=== PATIENT | male | born 1980 | race Caucasian/White ===

== ENCOUNTER 2019-04-17 20:59 | Emergency (ER) | payer MEDICAID, SELFPAY ==
[2019-04-17 21:00] VITALS: BP 125/86; PULSE 89; RESP 16; TEMP 37.2; O2SAT 100; BMI 24.3
[2019-04-17 21:22] LABS: Bacteria 0 SEEN /hpf (None Seen); Mucous, Urine 0 SEEN /hpf (<or=2+); Squamous Epithelial Cells - UA 0 SEEN /hpf (0-5)
[2019-04-17 21:51] LABS: Color, Urine Yellow (Yellow); Glucose, Dipstick Normal (Normal); Ketone-Dipstick Negative (Negative); Leukocyte Esterase-Dipstick 25 /ul (Negative); Nitrite-Dipstick Negative (Negative); Occult Blood-Urine 50 /ul (Negative); Protein-Dipstick Negative (Negative); Specific Gravity, Urine 1.005 (1.002-1.030); Urine Bilirubin Dipstick Negative (Negative); Urine Clarity Clear (Clear); Urine Urobilinogen Normal (Normal)
[2019-04-17 22:04] LABS: Red Blood Cells-Urine 0-5 SEEN /hpf (0-5); White Blood Cells 0-5 SEEN /hpf (0-5)
--- NOTE | 2019-04-17 22:22 | CT_ITS ---
STUDY: CT ABDOMEN AND PELVIS WITHOUT CONTRAST REASON FOR EXAM: Male, 38 years old. Right flank pain with hematuria RADIATION DOSAGE (If Supplied By Facility): CTDIvol = ( 6.57 ) mGy, DLP = ( 321.94 ) mGycm TECHNIQUE: Transaxial 3.75 mm images were obtained from the dome of the diaphragm to the symphysis pubis without oral contrast, and without intravenous contrast. Sagittal and coronal images were reconstructed. This examination is limited for the evaluation of gastrointestinal, solid organs and vascular structures due to the lack of intravenous and oral contrast. Individualized dose optimization techniques were used for this CT. COMPARISON: None. FINDINGS: Atelectasis right base. Hyperinflation basilar parenchyma. Trace right pleural fluid. The visualized portions of the heart are within normal limits. Liver appears low attenuated and enlarged. Normal gallbladder and extrahepatic biliary system. Round low-attenuation anterior superior spleen of 1.3 x 1.2 x 1.2 cm measuring near water density. Normal pancreas. Normal bilateral adrenal glands. Mild right hydronephrosis and hydroureter with a obstructing distal ureteral calculus just superior to the UVJ measuring 0.5 x 0.2 cm image 100 series 2. There is perirenal stranding and trace fluid. Left mid renal cyst 2.2 x 2.2 cm and a nonobstructing 1 to 2 mm calculus. Normal visualized stomach. Normal small intestine. Normal colon. The appendix is visualized and appears normal. Normal abdominal aorta. Normal inferior vena cava. Normal retroperitoneum. Decompressed urinary bladder. The prostate is age appropriate. There is minimal pelvic fluid. Normal abdominal wall. Left total hip arthroplasty with streak artifact. CT/Abdomen/Pelvis without Cont IMPRESSION: Mild right hydronephrosis and hydroureter with an obstructing small right distal ureteral/UVJ calculus. Small left renal cyst and nonobstructing left renal calculus. Probable hepatomegaly and hepatic steatosis. Trace pelvic fluid of unclear etiology. There is no appendicitis, diverticulitis, abscess, collection, perforation or obstruction. Low-attenuation in the spleen may be a cyst or hemangioma the patient's age group. This can be confirmed with ultrasound if needed. Other nonacute findings as outlined above. Electronically Signed: Megan Shah MD at 23:10 EDT , Service support ,
--- NOTE | 2019-04-17 22:25 | ED.VISSUMM ---
- ER Visit Summary Date of Service: 04/17/19 Chief Complaint: Flank pain History of Present Illness: The patient is a 38 M who presents with right flank pain. This is been present for 2 days. He currently rates it as 10 out of 10. It radiates from the right lower back around to the right lower abdomen. He has had some relief with a heating pad. He is concerned he may have a kidney stone although he has no prior history of this. He does report intermittent hematuria but no dysuria frequency urgency. No fevers or chills. No nausea vomiting or diarrhea. Physical Examination: Afebrile vitals normal Moist mucous membranes Heart regular rate and rhythm Lungs are clear The abdomen is soft nontender nondistended no reproducible abdominal tenderness Patient does have right CVA tenderness Alert Test Results: Urinalysis shows 25 leukocyte esterase, 50 blood but 0-5 WBCs, 0-5 RBCs. Labs notable for white count 15.5, creatinine 1.4. CT of the abdomen and pelvis shows mild hydronephrosis with a 5 x 2 mm distal right ureteral calculus. Emergency Department Course and Treatment: Patient was treated with IV fluids, Toradol, Zofran. He does feel much better on reevaluation. Therefore I do believe he can be managed as an outpatient with expectant care. He will be referred to urology for outpatient follow-up. He does understand to return for new or worsening symptoms. Patient discharged. Treatment Plan: [] Disposition: Discharge Impression: Ureterolithiasis This note was generated with [employer] dictation software. It may contain incorrect words, spelling, and punctuation that were not noted in review of the chart prior to signing ED Disposition - Plan for ED Patient: Referrals: Colten Dominguez DO [Primary Care Provider] -
[2019-04-17 22:41] LABS: Absolute Neutrophil Count 12.7 X10^3/uL (2.0-7.7); Basophil# 0.02 X10^3/uL; Basophil% 0.1 % (0-1); Eosinophil# 0.09 X10^3/uL; Eosinophils% 0.6 % (0-5); Hematocrit 43.2 % (40-54); Hemoglobin 14.6 g/dl (13.0-16.5); Lymphocyte % 9.7 % (19-41); Mean Corp Hgb Conc 33.8 g/gl (32-36); Mean Corpuscular Hgb 29.1 pg (27.0-32.0); Mean Corpuscular Volume 86.2 fL (80-94); Mean Platelet Vol. 8.6 fl (6.2-12.0); Monocyte# 1.16 X10^3/uL; Monocyte% 7.5 % (0-10); Neutrophil # 12.68 X10^3/uL (2.7-7.7); Neutrophil % 81.8 % (47-70); Platelet Count 230 K/mm3 (150-450); RBC Distribution Width CV 13.1 % (11.6-14.6); RBC Distribution Width SD 41.4 fl (35.1-43.9); Red Blood Count 5.01 M/mm3 (4.6-6.2); White Blood Count 15.5 K/mm3 (4.4-11.0)
[2019-04-17 22:42] LABS: POSITIVE COUNT NO; POSITIVE DIFFERENTIAL NO; POSITIVE MORPHOLOGY NO
[2019-04-17] MEDS: 0.9% Normal Saline 1,000 ML 1000 ML IV (22:42)
[2019-04-17] MEDS: Ketorolac 30 MG/ML Syringe IV (22:42)
[2019-04-17] MEDS: Ondansetron 4 MG/2 ML Vial IV (22:42)
[2019-04-18 00:05] LABS: BUN 14 mg/dL (7-18); Estimated Creatinine Clearance 63.29 ml/min; Glucose 95 mg/dL (74-106)
[2019-04-18 00:06] LABS: ALB/GLOB Ratio 0.8 RATIO (0.9-2.4); AST(SGOT) 14 U/L (15-37); Alanine Aminotransfer ALT/SGPT 20 U/L (16-61); Albumin, Serum 2.8 g/dL (3.2-5.0); Alkaline Phosphatase 47 U/L (45-117); Anion Gap 8 (5-15); Chloride 101 mmol/L (98-107); EST Glomerular Filtration Rate 59 mL/min (>60); Est Glom Filt Rate - Afr Amer 72 mL/min (>60); Globulin 3.5 g/dL (2.2-4.2); Potassium 3.2 mmol/L (3.5-5.1); Protein, Total 6.3 g/dL (6.4-8.2); Sodium Level 137 mmol/L (136-145)
--- NOTE | 2019-04-18 00:15 | ED.DEP ---
ED Disposition - Plan for ED Patient: Instructions: KIDNEY STONE w/ Colic Prescriptions: Tamsulosin HCl [Flomax] 0.4 mg PO DAILY #7 cap Prescription Printed Oxycodone HCl/Acetaminophen [Percocet 5/325] 1 tab PO Q6H PRN PRN 3 Days #12 tab PRN Reason: Pain Prescription Printed Referrals: Colten Dominguez DO [Primary Care Provider] -
[2019-04-18 00:41] VITALS: BP 120/82; PULSE 72; RESP 16; O2SAT 97
== END 2019-04-18 00:41 | disposition home or self-care (01) ==
PROVIDERS: Emergency Provider Emergency Medicine; Family Provider Family Medicine; PCP Family Medicine
DX: N13.2 Hydronephrosis with renal and ureteral calculous obstruction (principal); Z72.0 Tobacco use
CPT/HCPCS: 74176; 80053; 81001; 85025; 96361; 96374; 96375; 99283; J7030; A4216; J2405

== ENCOUNTER 2019-08-30 17:32 | Emergency (ER) | payer MEDICAID, SELFPAY ==
[2019-08-04 18:39] VITALS: BMI 25.0
[2019-08-30] VITALS (12 sets, daily range): BP systolic 104–149; BP diastolic 70–119; PULSE 81–104; RESP 12–25; TEMP 37.2; O2SAT 95–100; BMI 24.5
--- NOTE | 2019-08-30 17:52 | RAD_ITS ---
STUDY: X-RAY - PELVIS AND LEFT HIP REASON FOR EXAM: Male, 39 years old. Dislocation. TECHNIQUE: 2 views of the pelvis and hip. COMPARISON: 08/04/2019. FINDINGS: Left total hip arthroplasty. Complete dislocation of the hip with the femoral component projecting superior to the acetabulum. Acetabular component remains in situ. No evidence of fracture or periprosthetic fracture. No evidence of loosening. Soft tissues and bony structures are otherwise unremarkable. RAD/Hip Min 2 Views (Portable) IMPRESSION: Left hip dislocation. Electronically Signed: Abby Hurst MD at 19:15 EST Tel , Service support ,
--- NOTE | 2019-08-30 17:54 | ED.DCSUM_ITS ---
History of Present Illness Chief Complaint: Lower Extremity Injury Informant: Patient Occurred: Today Mechanism/Context: - - turned wrong while trying to manipulate a part on a car Context: Sudden Onset Timing: Continuous Quality of Pain: Aching Location: left hip/buttock Current Severity: Moderate Maximum Severity: Severe Worsened by: movement LLE Relieved by: remaining still Associated Symptoms: Loss of Funtion. Negative for: Parasthesia, Weakness Narrative: Patient states he has a history of recurrent left hip dislocations and felt like he dislocated his hip this morning, around 12-13 hours ago. He states he had surgery for this but then dislocated once several months ago after his surgery, and it seems to come out easier now. He has not revisited his orthopedic surgeon yet for this. He states he initially went to the ER in [place] for this this morning, however they tried to get it in and could not, and he got tired of waiting so he left, saying that they would not let him eat and he was hungry. He use crutches to avoid bearing weight on his left lower extremity, since it was still dislocated. He last ate around 5 hours ago. He states he is ready to have it put back in now and presents to this emergency department. He denies any other injuries. 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 Past Medical History - Allergies and Home Meds Allergies/Adverse Reactions: Allergies Penicillins Allergy (Verified 08/30/19 17:45) Swelling Primary Care Physician: Colten Dominguez DO [Primary Care Provider] - Surgical History: total hip arthroplasty Lives: Spouse/ Significant Other Smoking Status: Former smoker Drugs: None Review of Systems General: Denies: Chills, Fever, Sweats Eyes: Denies: Visual changes - bilaterally, Diplopia ENT: Denies: Rhinorrhea, Sore throat Cardiovascular: Denies: Chest pain, Palpitations Respiratory: Denies: Dyspnea, Cough, Dyspnea on exertion Gastrointestinal: Denies: Abdominal pain, Nausea, Vomiting, Diarrhea, Melena, Hematochezia Genitourinary: Denies: Dysuria, Hematuria, Frequency Musculoskeletal: Reports: Extremity Pain. Denies: Back pain Skin: Denies: Rash, Wounds Neurological: Denies: Headache, Weakness, Numbness Physical Exam Vital Signs/Narrative: Vital Signs Temp Pulse Resp BP Pulse Ox 08/30/19 17:33 98.9 F 104 H 18 149/89 H 100 Inital Vital Signs reviewed: Yes - Extremity Exam Left Femur: Deformity - internally rotated and shortened, Limited ROM, - - tender left greater troch and in buttock General: Well nourished, Well developed Head: Normocephalic, Atraumatic Eyes: Perrl, EOMI Neck: Nontender, Full ROM Cardiovascular: Regular rate, Regular rhythm, No murmurs Respiratory: No distress, CTA bilaterally, Chest nontender Back: Nontender, Spinal Tenderness Skin: Normal color, No rash, - - skin intact Neurological: Alert, Oriented x3, Cranial nerves II-XII grossly intact, Normal Strength, Normal Sensation Psychological: Normal affect, Normal Mood Diagnostic/Tx/Re-eval Clinical Impression(s) from Imaging Studies Hip X-Ray 08/30/19 17:52 IMPRESSION: Left hip dislocation. Electronically Signed: Abby Hurst MD at 19:15 EST Tel , Service support , - Medical Decision Making I attempted to reduce the hip with nursing assistance initially, however I was unable to do so using significant force and multiple techniques. Therefore I discussed with Dr. Fulton, on-call for orthopedics. He was hesitant to see this patient and help. He was concerned that the patient may have had a special hip replacement that may require a joint specialist. The patient states he had the arthroplasty initially performed 15 years ago and he thinks he has a [employer] hardware. He had a revision around 2 years ago and this is only the second dislocation he has had since the revision. He states his doctor was Dr. villa, at [facility]. He states he has an appointment with him but he cannot remember for when. Dr. Fulton recommends transferring him to [facility]. I discussed this with the patient and he adamantly refuses to be transferred to [place]. Therefore I felt my only choice was to wait until the next ED physician came on, and we attempted to reduce it together, which eventually was successful using again multiple techniques. X-ray confirmed successful reduction. He is placed in a knee immobilizer and discharged home to follow-up with his orthopedic doctor. Procedures Procedure(s): Procedural sedation --patient initially given propofol 1 mg/kg, however he was still awake and talking. I gave him several other aliquots, totaling 200 mg of propofol, to keep him sedated while attempting to reduce the hip. This was repeated approximately 3 hours later, again using a total of 200 mg of propofol but 110 mg were initially given, followed by 2 more aliquots to keep him sedated. There was no hypotension or hypoxemia, he remained on oxygen with IV fluids going and under nursing supervision. Closed left hip reduction --with first round of procedural sedation, patient had been n.p.o. for 7 hours, and sedated as above. I attempted to reduce the hip using multiple techniques involving forced distraction, hyper-adduction, and extreme internal rotation with nursing assistance but was unable to reduce it. Second attempt under sedation as above, patient was treated with Phenergan 6.25 mg and fentanyl 50 mcg initially, since upon coming out of sedation initially he had dry heaving for a brief period of time. We were able to sedate him better knowing that he had high tolerance to the propofol, and with the assistance of another ED physician Dr. Bhatia, we were able to successfully reduce the hip, as confirmed by x-ray. Was placed in a knee immobilizer. ED Disposition - Plan for ED Patient: Disposition: Home or Assisted Living Diagnosis: Hip dislocation, left Instructions: HIP REPLACEMENT, Dislocation, Reduced, Knee Immobilizer Referrals: Colten Dominguez, [Primary Care Provider] - orthopedic, your [Other] - As soon as possible Additional Instructions: DO NOT remove the knee immobilizer; doing so, even to bathe/shower, puts you at risk of re-dislocating.
[2019-08-30] MEDS: Morphine 4 MG/ML Syringe IV (18:52)
[2019-08-30] MEDS: Propofol 200 MG/20 ML Vial IV BOLUS (20:40)
--- NOTE | 2019-08-30 21:46 | ED.RN ---
pt refusing transfer to [facility] with several attempts, states I will drive myself there tomorrow, but I will not go up there without a car and be stuck there with no ride.
[2019-08-30] MEDS: fentaNYL 100 MCG/2 ML Ampul 50 MCG IV (23:37)
[2019-08-30] MEDS: proMETHazine 25 MG/ML Syringe 6.25 MG IV (23:38)
[2019-08-31 00:01] VITALS: BP 110/76; PULSE 92; RESP 22; O2SAT 97
[2019-08-31] MEDS: Propofol 200 MG/20 ML Vial IV BOLUS (00:03)
[2019-08-31 00:06] VITALS: BP 113/81; PULSE 80; RESP 18; O2SAT 99
--- NOTE | 2019-08-31 00:10 | RAD_ITS ---
STUDY: X-RAY - LEFT HIP REASON FOR EXAM: Male, 39 years old. Status post reduction. TECHNIQUE: 1 view of the hip. COMPARISON: None. FINDINGS: There is a left hip prosthesis in place. Alignment is normal. No lucency to suggest loosening or acute fracture. Normal visualized superior and inferior pubic rami and ischial tuberosities. RAD/Hip 1 view with Pelvis IMPRESSION: Left knee prosthesis in place with normal alignment. Specifically, no acute fracture or subluxation seen. Electronically Signed: Janelle Jenkins MD at 0:39 EST , Service support ,
[2019-08-31 00:11] VITALS: BP 105/77; PULSE 82; RESP 18; O2SAT 99
[2019-08-31 00:25] VITALS: BP 108/84; PULSE 78; RESP 16; O2SAT 100; O2SAT 99
== END 2019-08-31 00:39 | disposition home or self-care (01) ==
PROVIDERS: Emergency Provider Emergency Medicine; Family Provider Family Medicine; PCP Family Medicine
DX: T84.021A Dislocation of internal left hip prosthesis, initial encounter (principal); X50.1XXA Overexertion from prolonged static or awkward postures, initial encounter; Y93.9 Activity, unspecified; Y92.9 Unspecified place or not applicable; Y99.9 Unspecified external cause status; Z88.0 Allergy status to penicillin; Z87.891 Personal history of nicotine dependence; Z96.652 Presence of left artificial knee joint
CPT/HCPCS: 27265; 73501; 73502; 96374; 96375; 99152; 99156; 99285; J7030; A4216